=== PATIENT | female | born 1965 | race Caucasian/White ===

== ENCOUNTER 2021-06-05 15:29 | Emergency (ER) | payer OTHER ==
[~2021-06-05] VITALS: Ht 162.6 cm; Wt 68.0 kg
[2021-06-05] MEDS ORDERED: ADDERALL 20 MG20 MG PO (15:48)
[2021-06-05] MEDS ORDERED: PROZAC20 MG PO (15:49)
[2021-06-05] MEDS ORDERED: NAPROSYN500 MG PO (17:05)
[2021-06-05] MEDS ORDERED: MEDROLDOSEPACK PO (17:05)
[2021-06-05] MEDS ORDERED: HYDROCODON-ACE1 EAC7 PO (17:07)
[2021-06-05 17:23] VITALS: BP 128/80
== END 2021-06-05 17:24 | disposition home or self-care (01) ==
LOC: M.ERS 15:29
DX: M51.37 Other intervertebral disc degeneration, lumbosacral region (principal); M48.07 Spinal stenosis, lumbosacral region; M54.42 Lumbago with sciatica, left side; Z88.2 Allergy status to sulfonamides; Z88.1 Allergy status to other antibiotic agents; Z88.0 Allergy status to penicillin; Z79.899 Other long term (current) drug therapy